=== PATIENT | female | born 1965 | race African-American/Black ===

== ENCOUNTER 2017-11-20 14:17 | Emergency (ER) | payer OTHER ==
[~2017-11-20] VITALS: Ht 172.7 cm; Wt 123.1 kg
[~2017-11-20 14:17] MED LIST: ACETAMINOPHEN-1 EAC1 PO; AMOXICILLIN 50500 MG PO; COZAAR 25 MG TA25 MG PO; FAMOTIDINE PO; FLEXERIL PO; KEFLEX500 MG PO; LORTAB 5 MG/5001 TAB PO; MULTIVITAMINS1 EAC7 PO; NORCO 5-325 TA1 EACH PO; PENICILLIN VK500 M1 PO; PERIDEX 0.12%473 M1 SSP; PERIDEX15 ML PO; POTASSIUM20 PO; TRAMADOL 50 MG50 MG PO
[2017-11-20 14:50] LABS: ABSOLUTE EOSINOPHILS 0.2 thou/uL (0.0-0.7); ABSOLUTE LYMPHOCYTES 2.2 thou/uL (0.8-5.3); ABSOLUTE MONOCYTES 0.4 thou/uL (0.0-1.2); ABSOLUTE NEUTROPHILS 4.7 thou/uL (1.6-8.1); BASOPHILS 0.4 %; EOSINOPHILS 2.1 %; HEMATOCRIT 42.4 % (37.0-47.0); HEMOGLOBIN 14.2 gm/dL (12.0-15.0); LYMPHOCYTES 29.4 %; MCH 30.1 pg (26.0-34.0); MCHC 33.5 g/dL (28.0-37.0); MONOCYTES 5.6 %; MPV 7.7 fl. (7.2-11.1); NUCLEATED RBCS 0 /100WBC; PLATELET COUNT* 341 thou/uL (150-400); POLYS 62.5 %; RBC 4.71 mil/uL (4.20-5.00); RDW-CV 14.2 % (10.5-14.5); WBC 7.5 thou/uL (4.0-11.0)
[2017-11-20 14:59] LABS: ANION GAP 8 mmol/L (7-16); BUN 10 mg/dL (7-18); CHLORIDE 103 mmol/L (98-107); CO2 26 mmol/L (21-32); CREATININE 1.1 mg/dL (0.6-1.3); GLUCOSE 152 mg/dL (70-99); POTASSIUM 3.4 mmol/L (3.5-5.1); SODIUM 137 mmol/L (136-145)
[2017-11-20 15:06] LABS: ALBUMIN 3.8 g/dL (3.4-5.0); ALKALINE PHOSPHATASE 67 U/L (46-116); LIPASE 222 U/L (73-393); SGOT 18 U/L (15-37); SGPT 33 U/L (30-65); TOTAL BILIRUBIN 0.4 mg/dL (<0.1-1.0); TOTAL PROTEIN 8.1 g/dL (6.4-8.2); TROPONIN-I LEVEL <0.06 ng/mL (<0.06)
[2017-11-20 18:05] VITALS: BP 136/94
--- NOTE | 2017-11-21 12:40 | EKG ---
[place] [address] ELECTROCARDIOGRAM REPORT Name: MARIO PEMBERTON Room: [facility]#: [id number] Admission: 11/20/17 Attend Phys: Discharge: 11/20/17 Date of : 69 Report #: [id number] THIS REPORT FOR: //name// [facility] ED Test Date: 2017-11-20 Test Time: 14:22:12 Pat Name: MARIO PEMBERTON Department: Room: Gender: F Boning Room Worker: Shiraz HOLLOWAY : 1965 Requested By: rAleen Wong Order Number: [id number] MD: Wong Moscoso Measurements Intervals [place] Rate: 104 P: 66 AK: 166 QRS: 64 QRSD: 84 T: -11 QT: 325 QTc: 428 Interpretive Statements Sinus tachycardia Probable left atrial enlargement Borderline T abnormalities, inferior leads Baseline wander in lead(s) V1 Compared to ECG 02/21/2010 23:47:44 T-wave abnormality now present Sinus rhythm no longer present Electronically Signed On 11-21-2017 12:40:24 CDT by Wong Moscoso [email or web address] <ELECTRONICALLY SIGNED> By: Wong Moscoso MD, FAC 11/21/17 1240 1422 1422 Wong Moscoso MD, [facility] /EPI
== END 2017-11-20 18:06 | disposition home or self-care (01) ==
LOC: M.ERS 14:17
PROVIDERS: Personal Emergency Response Attendant
DX: R07.89 Other chest pain (principal); I10 Essential (primary) hypertension

== ENCOUNTER 2018-03-14 08:04 | Emergency (ER) | payer OTHER ==
[~2018-03-14] VITALS: Ht 175.2 cm; Wt 90.7 kg
[2018-03-14 08:10] VITALS: BP 127/91
[2018-03-14] MEDS ORDERED: GENTAK5 ML INTRAOCULR (08:31)
== END 2018-03-14 08:42 | disposition home or self-care (01) ==
LOC: M.ERS 08:04
DX: H10.9 Unspecified conjunctivitis (principal); I10 Essential (primary) hypertension; Z98.890 Other specified postprocedural states

== ENCOUNTER 2018-07-25 08:07 | Emergency (ER) | payer OTHER ==
[~2018-07-25] VITALS: Ht 175.3 cm; Wt 90.7 kg
[~2018-07-25 08:07] MED LIST changes: +GENTAK5 ML INTRAOCULR
[2018-07-25] MEDS ORDERED: KEFLEX500 M1 PO (08:59)
[2018-07-25] MEDS ORDERED: NORCO 5-325 TA1 EACH PO (09:39)
[2018-07-25] MEDS ORDERED: IBUPROFEN 800800 MG PO (09:40)
[2018-07-25 09:45] VITALS: BP 155/99
== END 2018-07-25 09:45 | disposition home or self-care (01) ==
LOC: M.ERS 08:07
DX: L03.012 Cellulitis of left finger (principal); I10 Essential (primary) hypertension

== ENCOUNTER 2019-06-17 06:13 | Emergency (ER) | payer OTHER ==
[~2019-06-17] VITALS: Ht 175.3 cm; Wt 108.9 kg
[~2019-06-17 06:13] MED LIST changes: +IBUPROFEN 800800 MG PO; +KEFLEX500 M1 PO
[2019-06-17 06:19] VITALS: BP 160/105
[2019-06-17 06:57] LABS: INFLUENZA A ANTIGEN Negative (Negative); INFLUENZA B ANTIGEN Negative (Negative)
== END 2019-06-17 07:13 | disposition home or self-care (01) ==
LOC: M.ERS 06:13
PROVIDERS: Emergency Medicine Emergency Medical Services
DX: B34.9 Viral infection, unspecified (principal); I10 Essential (primary) hypertension; Z98.51 Tubal ligation status

== ENCOUNTER 2020-11-05 17:05 | Emergency (ER) | payer OTHER ==
[~2020-11-05] VITALS: Ht 175.3 cm; Wt 99.8 kg
[2020-11-05] MEDS ORDERED: LISINOPRIL-HCT1 EACH PO (17:21)
[2020-11-05] MEDS ORDERED: VITAMIN B-121000 MC2 SUBLING (17:21)
[2020-11-05] MEDS ORDERED: METFORMIN HCL500 M3 PO (17:21)
[2020-11-05] MEDS ORDERED: IRON18 M1 PO (17:21)
[2020-11-05] MEDS ORDERED: KLOR-CON 1010 MEQ PO (17:21)
[2020-11-05 17:40] LABS: ABSOLUTE BASOPHILS 0.1 thou/uL (0.0-0.2); ABSOLUTE EOSINOPHILS 0.1 thou/uL (0.0-0.7); ABSOLUTE LYMPHOCYTES 2.5 thou/uL (0.8-5.3); ABSOLUTE MONOCYTES 0.5 thou/uL (0.0-1.2); BASOPHILS 0.8 %; EOSINOPHILS 1.1 %; HEMATOCRIT 39.9 % (37.0-47.0); LYMPHOCYTES 27.5 %; MCH 30.8 pg (26.0-34.0); MCV 88.1 fL (80.0-100.0); MONOCYTES 5.8 %; MPV 7.1 fl. (7.2-11.1); NUCLEATED RBCS 0 /100WBC; PLATELET COUNT* 364 thou/uL (150-400); POLYS 64.8 %; RBC 4.53 mil/uL (4.20-5.00); RDW-CV 13.1 % (10.5-14.5); WBC 9.3 thou/uL (4.0-11.0)
[2020-11-05 17:49] LABS: CALCIUM 9.1 mg/dL (8.5-10.1); POTASSIUM 3.5 mmol/L (3.5-5.1)
[2020-11-05 17:53] LABS: ALBUMIN 4.3 g/dL (3.4-5.0); TOTAL BILIRUBIN 0.6 mg/dL (<0.1-1.0); TOTAL PROTEIN 8.4 g/dL (6.4-8.2)
[2020-11-05 17:54] LABS: URINE BILIRUBIN NEGATIVE (Negative); URINE BLOOD NEGATIVE (Negative); URINE CLARITY CLEAR; URINE COLOR YELLOW; URINE GLUCOSE-RANDOM NEGATIVE (Negative); URINE KETONES NEGATIVE (Negative); URINE LEUKOCYTES-REFLEX NEGATIVE (Negative); URINE NITRITE-REFLEX NEGATIVE (Negative); URINE PROTEIN NEGATIVE (Negative); URINE SPECIFIC GRAVITY >= 1.030 (1.005-1.030); URINE UROBILINOGEN 0.2 E.U./dl (0.2-1.0)
[2020-11-05] MEDS ORDERED: ZOFRAN ODT4 MG PO (21:01)
[2020-11-05 21:06] VITALS: BP 124/73
--- NOTE | 2020-11-06 09:49 | EKG ---
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[facility] 1965 Requested By: Marya Desai Order Number: [id number] MD: Shahram Jones Measurements Intervals [place] Rate: 84 P: 25 [place]: 168 QRS: 48 QRSD: 96 T: 14 QT: 368 QTc: 436 Interpretive Statements Sinus rhythm Compared to ECG 11/20/2017 14:22:12 Sinus tachycardia no longer present T-wave abnormality no longer present Electronically Signed On 11-06-2020 9:49:14 CDT by Shahram Jones [email or web address] <ELECTRONICALLY SIGNED> By: Shahram Jones MD, [facility] 11/06/20 0949 1739 1739 Shahram Jones MD, [facility] /EPI
== END 2020-11-05 21:07 | disposition home or self-care (01) ==
LOC: M.ERS 17:05
PROVIDERS: Nurse Practitioner Family
DX: R53.1 Weakness (principal); Z20.822 Contact with and (suspected) exposure to COVID-19; I10 Essential (primary) hypertension; Z98.51 Tubal ligation status